=== PATIENT | female | born 1965 | race Caucasian/White ===

== ENCOUNTER 2016-08-22 18:25 | Emergency (ER) | payer OTHER ==
[~2016-08-22] VITALS: Ht 154.9 cm; Wt 64.9 kg
[2016-08-22 21:24] LABS: BASOPHIL % 0.4 % (0-2)
[2016-08-22 21:25] LABS: PLATELET COUNT 402 x10^3mcL (130-400); RED CELL DISTRIBUTION WIDTH 19.3 % (11.5-14.5)
[2016-08-22 21:31] LABS: CALCIUM 9.4 mg/dL (8.5-10.1); CARBON DIOXIDE 25.8 mmol/L (21-32); CHLORIDE SERUM 104 mmol/L (98-107); CREATININE SERUM 0.7 mg/dL (0.6-1.0); GFR1 > 60 mL/min; GLUCOSE SERUM 127 mg/dL (74-106); SODIUM SERUM 138 mmol/L (136-145)
[2016-08-22 21:42] LABS: ALBUMIN 3.4 g/dL (3.4-5.0); ALKALINE PHOSPHATASE 77 U/L (46-116); ALT/SGPT 25 U/L (14-59); AST/SGOT 13 U/L (15-37); BILIRUBIN TOTAL 0.39 mg/dL (0.20-1.00); CHOLESTEROL 166 mg/dL (<200); CHOLESTEROL/HDL RATIO 2.8; HDL CHOLESTEROL 59 mg/dL (40-60); LIPASE 116 IU/L (73-393); TOTAL PROTEIN, SERUM 7.8 g/dL (6.4-8.2); TRIGLYCERIDES 187 mg/dL (<150)
[2016-08-22 21:46] LABS: microscopic required? YES; urine erythrocyte TRACE (NEGATIVE)
[2016-08-22 22:04] LABS: T3 TOTAL 1.45 ng/mL
[2016-08-22 23:17] LABS: FREE T4 1.27 ng/dL (0.76-1.46); FREE THYROXINE INDEX 4.2 ug/dL (1.4-4.5); T4(THYROXINE) 12.3 ug/dL (4.7-13.3)
[2016-08-23 00:20] VITALS: BP 110/65
== END 2016-08-23 00:20 | disposition home or self-care (01) ==
LOC: ED 18:25
PROVIDERS: Specialist
DX: M94.0 Chondrocostal junction syndrome [Tietze] (principal); K27.9 Peptic ulcer, site unspecified, unspecified as acute or chronic, without hemorrhage or perforation; E11.9 Type 2 diabetes mellitus without complications; E66.9 Obesity, unspecified; I10 Essential (primary) hypertension; M06.9 Rheumatoid arthritis, unspecified
CPT/HCPCS: 83880; 84439; C9113; J1885; J2405; J3010; J7030

== ENCOUNTER 2018-11-27 20:45 | Emergency (ER) | payer OTHER ==
[~2018-11-27] VITALS: Ht 154.9 cm; Wt 64.6 kg
[2018-11-27 20:49] VITALS: Ht 154.9 cm; Wt 64.6 kg
[2018-11-27 22:01] VITALS: BP 126/78
== END 2018-11-27 22:01 | disposition home or self-care (01) ==
LOC: ED 20:45
DX: H53.8 Other visual disturbances (principal); I10 Essential (primary) hypertension; E11.9 Type 2 diabetes mellitus without complications; M06.9 Rheumatoid arthritis, unspecified; Z76.0 Encounter for issue of repeat prescription
CPT/HCPCS: 82962